=== PATIENT | male | born 1935 | race Caucasian/White ===

== ENCOUNTER → 2016-11-17 10:06 | Outpatient (CLI) | payer MEDICARE, BC | END | disposition home or self-care (01) | LOC: D.LAB 10:06 | DX: R93.2 Abnormal findings on diagnostic imaging of liver and biliary tract (principal) ==

== ENCOUNTER → 2017-03-26 11:11 | Outpatient (CLI) | payer MEDICARE, BC | END | disposition home or self-care (01) | LOC: D.MRI 11:11 | DX: G50.0 Trigeminal neuralgia (principal) ==

== ENCOUNTER → 2017-04-03 08:15 | Outpatient (CLI) | payer MEDICARE, BC | END | disposition home or self-care (01) | LOC: D.US 08:15 | DX: R17 Unspecified jaundice (principal) ==

== ENCOUNTER 2019-01-26 12:52 | Emergency (ER) | payer MEDICARE, BC ==
[~2019-01-26] VITALS: Ht 177.8 cm; Wt 88.6 kg
[2019-01-26 12:57] VITALS: Ht 177.8 cm; Wt 88.6 kg
[2019-01-26] MEDS ORDERED: LISINOPRIL10 MG PO (12:58)
[2019-01-26] MEDS ORDERED: PLAVIX75 MG PO (12:59)
[2019-01-26] MEDS ORDERED: LIPITOR20 MG PO (12:59)
[2019-01-26 16:19] VITALS: BP 147/81
== END 2019-01-26 16:19 | disposition home or self-care (01) ==
LOC: D.ER 12:52
DX: F45.8 Other somatoform disorders (principal); I10 Essential (primary) hypertension